=== PATIENT | female | born 1955 | race Caucasian/White ===

== ENCOUNTER → 2017-04-01 | Outpatient (CLI) | payer OTHER ==
[~2017-04-01] MED LIST: AMOX1TAB64 PO; AZIT500T77 PO; FLUT1DIS IH; HYDR12.53 PO; LEVO25TA4 PO; LISI-167 PO; METF500T4 PO; MONT4GRA2 PO; NAPR220C PO; OMEP-110 PO; PRED1TAB PO; PRED20TA PO; TIOT18CA INH
== END | disposition home or self-care (01) ==
LOC: CARD 13:45
PROVIDERS: ATTEND Family Medicine
DX: J44.9 Chronic obstructive pulmonary disease, unspecified (principal)
CPT/HCPCS: 94060; 94726; 94729

== ENCOUNTER 2020-01-20 13:01 | Outpatient (CLI) | payer OTHER, MEDICAID ==
[~2020-01-20 13:01] MED LIST changes: +ASPI-515 PO; +AZIT500T10 PO; -AZIT500T77 PO; +FLUT1DIS5 IH; +FURO-93 PO; +HYDR12.517 PO; -HYDR12.53 PO; +LEVO750T26 PO; +METF500T17 PO; -METF500T4 PO; +NAPR-816 PO; -NAPR220C PO; +NAPR220C62 PO; +PRED10TA PO; -PRED1TAB PO; +PRED1TAB19 PO; +PREG75CA PO; +SIMV40TA20 PO; +potassium PO
[2020-01-20] MEDS ORDERED: METF500T17 PO (13:41)
[2020-01-20] MEDS ORDERED: NAPR-685 PO (13:41)
[2020-01-20] MEDS ORDERED: POTA10TA31 PO (13:41)
[2020-01-20] MEDS ORDERED: ASCO100019 PO (13:41)
[2020-01-20] MEDS ORDERED: OMEP-110 PO (13:41)
[2020-01-20] MEDS ORDERED: ALBU18HF INH (13:41)
[2020-01-20] MEDS ORDERED: CHOL10003 PO (13:41)
[2020-01-20] MEDS ORDERED: FLUT1BLS10 INH (13:41)
[2020-01-20] MEDS ORDERED: MONT10TA11 PO (13:41)
[2020-01-20] MEDS ORDERED: ALBUTEROL SULFATE NEB (13:41)
[2020-01-20 14:23] LABS: CALCIUM 10.4 mg/dL (8.5-10.1); CHLORIDE 103 mmol/L (98-107)
[2020-01-20 14:28] LABS: ALANINE AMINOTRANSFERASE 19 U/L (12-78); ALBUMIN 3.4 g/dL (3.4-5.0); ALKALINE PHOSPHATASE 100 U/L (45-117); ANION GAP 6 mmol/L (5-15); BILIRUBIN,TOTAL 0.4 mg/dL (0.2-1.0); CREATININE 0.57 mg/dL (0.55-1.02); TOTAL PROTEIN 7.8 g/dL (6.4-8.2)
== END 2020-01-20 23:59 | disposition home or self-care (01) ==
LOC: STAR 13:01
PROVIDERS: ATTEND Internal Medicine
DX: Z01.818 Encounter for other preprocedural examination (principal); R13.10 Dysphagia, unspecified; R00.0 Tachycardia, unspecified
CPT/HCPCS: 36415; 80053; 93005; U0001-CS

== ENCOUNTER 2020-02-01 12:29 | Day surgery (SDC) | payer OTHER, MEDICAID ==
[~2020-02-01] VITALS: Ht 157.5 cm; Wt 80.5 kg
[~2020-02-01 12:29] MED LIST changes: +ALBU18HF INH; +ALBUTEROL SULFATE NEB; +ASCO100019 PO; +CHOL10003 PO; +FLUT1BLS10 INH; +MONT10TA11 PO; +NAPR-685 PO; +POTA10TA31 PO
[2020-02-01 13:07] VITALS: BP 136/104
[2020-02-01] MEDS: LACTATED RINGERS 1,000 ML IV SCH ×2 (13:22→13:35)
[2020-02-01] MEDS ORDERED: CHLORHEXIDINE 15 ML UDC MM ONE (13:30)
[2020-02-01] MEDS ORDERED: FENTANYL PF 100 MCG/2ML ONE (14:13)
[2020-02-01] MEDS ORDERED: MIDAZOLAM 1 MG/ML, 2ML ONE (14:14)
[2020-02-01] MEDS ORDERED: PROPOFOL 10 MG/ML, 20ML ONE (14:47)
[2020-02-01] MEDS ORDERED: ALBUTEROL/IPRATROPIUM 2.5MG/0.5MG, 3 ML ONE (15:12)
[2020-02-01] MEDS ORDERED: FENTANYL PF 100 MCG/2ML IV PRN (15:30)
[2020-02-01] MEDS ORDERED: PROMETHAZINE 25 MG/ML, 1ML IVPush PRN (15:30)
[2020-02-01] MEDS ORDERED: ALBUTEROL/IPRATROPIUM 2.5MG/0.5MG, 3 ML NPPB PRN (15:30)
== END 2020-02-01 16:40 | disposition home or self-care (01) ==
LOC: OUT 12:29
PROVIDERS: ATTEND Internal Medicine
DX: R13.10 Dysphagia, unspecified (principal); C15.9 Malignant neoplasm of esophagus, unspecified; K44.9 Diaphragmatic hernia without obstruction or gangrene; I10 Essential (primary) hypertension; E11.9 Type 2 diabetes mellitus without complications; E03.9 Hypothyroidism, unspecified; J44.9 Chronic obstructive pulmonary disease, unspecified; Z79.899 Other long term (current) drug therapy; Z99.81 Dependence on supplemental oxygen
CPT/HCPCS: 43239; 82962; 88305; 94640; J2250; J2704; J3010; J7120

== ENCOUNTER 2020-03-16 11:00 | Day surgery (SDC) | payer OTHER, MEDICAID ==
[~2020-03-16] VITALS: Ht 157.5 cm; Wt 75.0 kg
[2020-03-16 12:46] VITALS: BP 124/86
[2020-03-16] MEDS ORDERED: LACTATED RINGERS 1,000 ML IV SCH (13:11)
[2020-03-16] MEDS ORDERED: HYDR-3237 PO (13:18)
[2020-03-16] MEDS ORDERED: CHLORHEXIDINE 15 ML UDC MM ONE (13:30)
[2020-03-16 13:33] LABS: ALANINE AMINOTRANSFERASE 14 U/L (12-78); ALBUMIN 3.1 g/dL (3.4-5.0); ANION GAP 6 mmol/L (5-15); CALCIUM 10.2 mg/dL (8.5-10.1); CHLORIDE 104 mmol/L (98-107); CREATININE 0.54 mg/dL (0.55-1.02)
[2020-03-16 13:36] LABS: ALKALINE PHOSPHATASE 91 U/L (45-117); BILIRUBIN,TOTAL 0.5 mg/dL (0.2-1.0); TOTAL PROTEIN 7.3 g/dL (6.4-8.2)
[2020-03-16] MEDS ORDERED: ALBUTEROL SULFATE 200 PUFFS/8.5 GR INH ONE (15:07)
[2020-03-16] MEDS ORDERED: SUCCINYLCHOLINE 20 MG/ML, 10ML ONE (15:07)
[2020-03-16] MEDS ORDERED: PROPOFOL 10 MG/ML, 20ML ONE (15:07)
[2020-03-16] MEDS ORDERED: PHENYLEPHRINE 10 MG/ML ONE (15:07)
[2020-03-16] MEDS ORDERED: ONDANSETRON 2MG/ML, 2ML ONE (15:07)
[2020-03-16] MEDS ORDERED: DEXAMETHASONE 4 MG/ML, 1ML ONE (15:07)
[2020-03-16] MEDS ORDERED: VANCOMYCIN 500 MG ONE ×2 (15:12→15:16)
[2020-03-16] MEDS ORDERED: SODIUM CHLORIDE 0.9% 100 ML ONE (15:12)
[2020-03-16] MEDS ORDERED: morphine SULFATE 10 MG/ML, 1ML IVPush PRN (15:30)
[2020-03-16] MEDS ORDERED: FENTANYL PF 100 MCG/2ML IV PRN (15:30)
[2020-03-16] MEDS ORDERED: OXYcodone 5 MG/5 ML ORAL.SOL UDC ONE (16:00)
[2020-03-16] MEDS ORDERED: FENTANYL PF 100 MCG/2ML ONE (16:03)
[2020-03-16] MEDS ORDERED: OXYcodone 5 MG/5 ML ORAL.SOL UDC PO PRN (16:30)
== END 2020-03-16 17:15 | disposition home or self-care (01) ==
LOC: OUT 11:00
PROVIDERS: ATTEND Internal Medicine
DX: C15.9 Malignant neoplasm of esophagus, unspecified (principal); Z11.59 Encounter for screening for other viral diseases; E03.9 Hypothyroidism, unspecified; E11.9 Type 2 diabetes mellitus without complications; I10 Essential (primary) hypertension; J44.9 Chronic obstructive pulmonary disease, unspecified; F17.210 Nicotine dependence, cigarettes, uncomplicated; Z88.8 Allergy status to other drugs, medicaments and biological substances; Z90.49 Acquired absence of other specified parts of digestive tract; Z79.899 Other long term (current) drug therapy; Z98.890 Other specified postprocedural states; Z79.82 Long term (current) use of aspirin; Z72.89 Other problems related to lifestyle; Z79.84 Long term (current) use of oral hypoglycemic drugs; Z82.49 Family history of ischemic heart disease and other diseases of the circulatory system; Z83.3 Family history of diabetes mellitus
CPT/HCPCS: 36415; 43246; 80053; 87635; 93005; B4087; J0330; J1100; J2370; J2405; J2704; J3010; J3370; J7120

== ENCOUNTER 2020-04-24 11:19 | Inpatient (IN) | payer OTHER, MEDICAID ==
[~2020-04-24] VITALS: Ht 157.5 cm; Wt 76.0 kg
[~2020-04-24 11:19] MED LIST changes: +HYDR-3237 PO
[2020-04-24] MEDS ORDERED: SODIUM CHLORIDE 0.9% 1,000 ML IV ONE (11:27)
[2020-04-24] MEDS ORDERED: SODIUM CHLORIDE FLUSH 10ML SYR IVF ONE (11:30)
--- NOTE | 2020-04-24 11:30 | NUR ---
PT BIB [facility], STATES FEELING G/O WEAKNESS, N/V/D, COUGH AND HEART PALP X4 DAYS. PT NOTED TO BE IN AN AFIB WITH RVR RHYTHM. ERMD AT BEDSIDE. PT OTHERWISE A&OX4, PROTECTING OWN AIRWAY WELL. PT PLACED ON MONITORS AND CODE CART PLACED BY ROOM IF NEEDED. EKG DONE AT [facility] BY TECH.
[2020-04-24] MEDS ORDERED: DILTIAZEM 5 MG/ML, 5ML ONE (11:38)
--- NOTE | 2020-04-24 11:45 | NUR ---
PT GIVEN CARDIZEM PER ERMD ORDER. PT HR DECREASED TO LOW 100'S. TECH AT BEDSIDE FOR EKG. PT REMAINS ON MONITORS. CONT TO MONITOR.
[2020-04-24 11:47] LABS: BASOPHILS # (AUTO) 0.01 x10^3/uL (0-0.1); BASOPHILS % (AUTO) 0 % (0-1); EOSINOPHILS # (AUTO) 0.05 x10^3/uL (0-0.4); EOSINOPHILS % (AUTO) 2 % (1-7); LYMPHOCYTES # (AUTO) 0.41 x10^3/uL (1-3.4); LYMPHOCYTES % (AUTO) 14 % (22-44); MD NO; MEAN CORPUSCULAR HEMOGLOBIN 27.8 pg (27.0-34.8); MEAN CORPUSCULAR HGB CONC 32.8 g/dL (32.4-35.8); MEAN CORPUSCULAR VOLUME 84.7 fL (80-100); MEAN PLATELET VOLUME 7.7 fL (7.4-10.4); MONOCYTES # (AUTO) 0.13 x10^3/uL (0.2-0.8); MONOCYTES % (AUTO) 4 % (2-9); NEUTROPHILS % (AUTO) 80 % (42-75); PLATELET COUNT 249 x10^3/uL (130-400); RED BLOOD COUNT 4.23 x10^6/uL (3.82-5.3); RED CELL DISTRIBUTION WIDTH 16.6 % (9.6-15.2)
[2020-04-24 11:59] LABS: ALANINE AMINOTRANSFERASE 15 U/L (12-78); ALBUMIN 2.6 g/dL (3.4-5.0); ANION GAP 7 mmol/L (5-15); CALCIUM 8.7 mg/dL (8.5-10.1); CHLORIDE 105 mmol/L (98-107); CREATININE 0.45 mg/dL (0.55-1.02)
[2020-04-24] MEDS ORDERED: DILTIAZEM 5 MG/ML, 5ML IVPush ONE (12:00)
[2020-04-24 12:04] LABS: ALKALINE PHOSPHATASE 74 U/L (45-117); BILIRUBIN,TOTAL 0.5 mg/dL (0.2-1.0); TOTAL PROTEIN 6.4 g/dL (6.4-8.2); TROPONIN I < 0.015 ng/mL (0.000-0.045)
[2020-04-24] MEDS ORDERED: MAGNESIUM SULFATE PMX 2GM/50ML 50 ML IV ONE (12:30)
[2020-04-24] MEDS ORDERED: MAGNESIUM SULFATE PMX 2GM/50ML 50 ML ONE (12:37)
[2020-04-24] MEDS: DILTIAZEM 125 MG in SODIUM CHLORIDE 0.9% 100 ML IV SCH (12:51)
--- NOTE | 2020-04-24 13:02 | NUR ---
ADMITTING MD AT BEDSIDE. PT WILL BE COVID R/O, PT AWARE OF POC, WILL BE [facility] ADMIT. PT REMAINS ON MONITORS, VSS. CONT TO MONITOR.
[2020-04-24] MEDS ORDERED: GUAIFENESIN/DM 200-20MG, 10ML UDC PO PRN (14:00)
[2020-04-24] MEDS ORDERED: ACETAMINOPHEN 325 MG TABLET PO PRN (14:00)
[2020-04-24] MEDS ORDERED: GUAIFENESIN/COD200MG-20MG/10ML LIQUID PO PRN (14:00)
[2020-04-24] MEDS ORDERED: DOCUSATE 100 MG CAPSULE PO PRN (14:00)
[2020-04-24] MEDS ORDERED: ONDANSETRON 2MG/ML, 2ML IVPush PRN (14:00)
[2020-04-24] MEDS ORDERED: ALBUTEROL HFA 90 MCG/SPRAY INH SCH (14:00)
[2020-04-24] MEDS ORDERED: LABETALOL 5MG/ML, 20ML IVPush PRN (14:00)
[2020-04-24] MEDS ORDERED: hydrALAzine 20 MG/ML, 1ML IVPush PRN (14:00)
[2020-04-24] MEDS ORDERED: FENTANYL REMOVE PATCH NOTE XX SCH (14:00)
--- NOTE | 2020-04-24 14:03 | NUR ---
PT RESTING IN BED, NO DISTRESS. REMAINS ON MONITORS, VSS. PT REMAINS AWARE OF POC. NO DISTRESS, CONT TO MONITOR.
--- NOTE | 2020-04-24 14:42 | NUR ---
REPORT GIVEN TO JESSICA WOODWARD. [facility] ADMITTING AT BEDSIDE FOR ASSESSMENT.
--- NOTE | 2020-04-24 15:45 | NUR ---
PT OK TO TRANSFER TO FLOOR, ROOM READY. PT REMAINS AWARE OF POC. ON MONITORS, VSS.
--- NOTE | 2020-04-24 16:10 | NUR ---
PT TRANSFERED TO FLOOR PER ORDERS. PT HAS ALL OWN BELONGINGS UPON TRANSFER.
[2020-04-24 16:13] VITALS: BP 92/66
[2020-04-24] MEDS ORDERED: ALBUTEROL SULFATE 2.5 MG/3 ML NPPB PRN (16:30)
[2020-04-24] MEDS ORDERED: ALBUTEROL HFA 90 MCG/SPRAY INH PRN (16:30)
[2020-04-24] MEDS: HEPARIN 5,000 UNITS/ML, 1ML SQ SCH (16:30)
[2020-04-24] MEDS: LACTATED RINGERS 1,000 ML IV SCH ×2 (16:32→18:16)
[2020-04-24 19:17] VITALS: BP 99/65
[2020-04-24] MEDS ORDERED: FENT1PAT5 TD (19:30)
[2020-04-24] MEDS ORDERED: FENTANYL 12 MCG PATCH TD SCH (20:00)
[2020-04-24] MEDS: NICOTINE 21 MG/24 HR PATCH.TD24 TD SCH (20:09)
[2020-04-24] MEDS: metFORMIN 500 MG TABLET PO SCH (20:09)
[2020-04-24] MEDS: HYDROcodone/APAP 5/325 TABLET PO PRN (20:09)
[2020-04-24] MEDS: SIMVASTATIN 40 MG TABLET PO SCH (20:10)
[2020-04-24] MEDS: OMEPRAZOLE 20 MG CAPSULE.DR PO SCH (20:13)
[2020-04-25] MEDS: DILTIAZEM 125 MG in SODIUM CHLORIDE 0.9% 100 ML IV SCH (00:51)
[2020-04-25 00:53] VITALS: BP 103/70
[2020-04-25] MEDS: HEPARIN 5,000 UNITS/ML, 1ML SQ SCH ×3 (00:53→17:05)
[2020-04-25] MEDS: LACTATED RINGERS 1,000 ML IV SCH (02:55)
[2020-04-25] MEDS: HYDROcodone/APAP 5/325 TABLET PO PRN ×3 (03:07→18:30)
[2020-04-25 06:05] LABS: ANION GAP 6 mmol/L (5-15); CALCIUM 8.4 mg/dL (8.5-10.1); CHLORIDE 106 mmol/L (98-107)
[2020-04-25 06:18] LABS: BASOPHILS # (AUTO) 0.01 x10^3/uL (0-0.1); BASOPHILS % (AUTO) 1 % (0-1); EOSINOPHILS # (AUTO) 0.05 x10^3/uL (0-0.4); EOSINOPHILS % (AUTO) 2 % (1-7); LYMPHOCYTES # (AUTO) 0.36 x10^3/uL (1-3.4); LYMPHOCYTES % (AUTO) 16 % (22-44); MD NO; MEAN CORPUSCULAR HEMOGLOBIN 27.8 pg (27.0-34.8); MEAN CORPUSCULAR HGB CONC 32.9 g/dL (32.4-35.8); MEAN CORPUSCULAR VOLUME 84.6 fL (80-100); MEAN PLATELET VOLUME 7.9 fL (7.4-10.4); MONOCYTES # (AUTO) 0.19 x10^3/uL (0.2-0.8); MONOCYTES % (AUTO) 9 % (2-9); NEUTROPHILS # (AUTO) 1.61 x10^3/uL (1.8-6.8); NEUTROPHILS % (AUTO) 72 % (42-75); PLATELET COUNT 176 x10^3/uL (130-400); RED BLOOD COUNT 3.35 x10^6/uL (3.82-5.3); RED CELL DISTRIBUTION WIDTH 16.9 % (9.6-15.2)
[2020-04-25 07:16] VITALS: BP 101/66
[2020-04-25] MEDS ORDERED: NICOTINE 21 MG/24 HR PATCH.TD24 TD SCH (09:00)
[2020-04-25] MEDS ORDERED: LISINOPRIL 10 MG TABLET PO SCH (09:00)
[2020-04-25] MEDS: OMEPRAZOLE 20 MG CAPSULE.DR PO SCH ×2 (09:00→20:47)
[2020-04-25] MEDS: LEVOTHYROXINE 25 MCG TABLET PO SCH (09:03)
[2020-04-25] MEDS: metFORMIN 500 MG TABLET PO SCH ×2 (09:03→20:47)
[2020-04-25] MEDS: MONTELUKAST 10 MG TABLET PO SCH (09:04)
[2020-04-25] MEDS: CHOLECALCIFEROL 1,000 UNIT TABLET PO SCH (09:04)
[2020-04-25] MEDS: NICOTINE 21 MG/24 HR PATCH.TD24 TD SCH (09:05)
[2020-04-25] MEDS ORDERED: DILTIAZEM 60 MG TABLET ONE ×3 (11:17→20:40)
[2020-04-25 11:23] VITALS: BP 95/63
[2020-04-25] MEDS: FLUTICASONE/VILANTEROL 200-25MCG/INH INH SCH (11:23)
[2020-04-25] MEDS: TIOTROPIUM BROMIDE 18 MCG/INH INH SCH (11:23)
[2020-04-25] MEDS: DILTIAZEM 30 MG TABLET PO SCH ×3 (11:24→20:47)
[2020-04-25 12:00] VITALS: BP 106/66
[2020-04-25 17:11] VITALS: BP 95/63
[2020-04-25 19:20] VITALS: BP 100/66
[2020-04-25] MEDS: SIMVASTATIN 40 MG TABLET PO SCH (20:47)
[2020-04-26] MEDS: HEPARIN 5,000 UNITS/ML, 1ML SQ SCH ×2 (00:02→08:24)
[2020-04-26] MEDS: HYDROcodone/APAP 5/325 TABLET PO PRN ×3 (00:02→12:11)
[2020-04-26 00:04] VITALS: BP 105/70
[2020-04-26] MEDS: DILTIAZEM 30 MG TABLET PO SCH ×2 (06:38→10:14)
[2020-04-26 06:39] VITALS: BP 100/64
[2020-04-26] MEDS: NICOTINE 21 MG/24 HR PATCH.TD24 TD SCH (08:24)
[2020-04-26] MEDS: metFORMIN 500 MG TABLET PO SCH (08:25)
[2020-04-26] MEDS: OMEPRAZOLE 20 MG CAPSULE.DR PO SCH (08:25)
[2020-04-26] MEDS: MONTELUKAST 10 MG TABLET PO SCH (08:25)
[2020-04-26] MEDS: CHOLECALCIFEROL 1,000 UNIT TABLET PO SCH (08:25)
[2020-04-26] MEDS: LEVOTHYROXINE 25 MCG TABLET PO SCH (08:25)
[2020-04-26] MEDS: TIOTROPIUM BROMIDE 18 MCG/INH INH SCH (08:25)
[2020-04-26] MEDS: FLUTICASONE/VILANTEROL 200-25MCG/INH INH SCH (08:25)
[2020-04-26 12:25] VITALS: BP 106/65
[2020-04-26] MEDS ORDERED: NAPR-685 PO (12:49)
[2020-04-26] MEDS ORDERED: DILT120C11 PO (12:49)
[2020-04-27] MEDS ORDERED: FENTANYL REMOVE PATCH NOTE XX SCH (20:00)
== END 2020-04-26 14:45 | disposition home or self-care (01) | DRG 309 ==
LOC: ED 11:51 → EDIP 12:27 → 4EST 15:57
PROVIDERS: ADMIT Student in an Organized Health Care Education/Training Program; ATTEND Student in an Organized Health Care Education/Training Program
DX: I48.91 Unspecified atrial fibrillation (principal); J44.1 Chronic obstructive pulmonary disease with (acute) exacerbation; C34.90 Malignant neoplasm of unspecified part of unspecified bronchus or lung; I95.9 Hypotension, unspecified; D64.9 Anemia, unspecified; D72.819 Decreased white blood cell count, unspecified; E03.9 Hypothyroidism, unspecified; E78.5 Hyperlipidemia, unspecified; F17.210 Nicotine dependence, cigarettes, uncomplicated; Z20.828 Contact with and (suspected) exposure to other viral communicable diseases; K21.9 Gastro-esophageal reflux disease without esophagitis; M54.9 Dorsalgia, unspecified; G89.3 Neoplasm related pain (acute) (chronic); E83.42 Hypomagnesemia; R13.10 Dysphagia, unspecified; I11.0 Hypertensive heart disease with heart failure; I50.9 Heart failure, unspecified; Z92.3 Personal history of irradiation; Z85.01 Personal history of malignant neoplasm of esophagus; Z79.4 Long term (current) use of insulin; Z85.118 Personal history of other malignant neoplasm of bronchus and lung; Z92.21 Personal history of antineoplastic chemotherapy
CPT/HCPCS: 36415; 71045; 80048; 80053; 82962; 83735; 83880; 84443; 84484; 85025; 87040; 87635; 93005; 96360; 96361; 99291; G0378; J1644; J3475; J7030; J7120

== ENCOUNTER 2020-05-20 00:01 | Emergency (ER) | payer OTHER, MEDICAID ==
[~2020-05-20] VITALS: Ht 157.5 cm; Wt 75.0 kg
[~2020-05-20 00:01] MED LIST changes: +DILT120C11 PO; +FENT1PAT5 TD; +FUROSEMIDE; +HOME OXYGEN NS; +ZOFRAN; +[UNRECOGNIZED DRUG - REMARK]
[2020-05-20 00:04] VITALS: BP 122/62
--- NOTE | 2020-05-20 00:23 | NUR ---
65 YEAR OLD FEMALE TO ED FOR DYSPHAGIA AND UNABLE TO TOLERATE PO. SHE STATES SHE HAS PMHX OF CANCER WITH A MASS THAT COMPRESSES HER ESOPHAGUS. SHE HAD CHEMO THIS AM AND HAD TO LAY FLAT DURING THE PROCEDURE. SINCE THEN SHE HAS BEEN HAVING INCREASED SPUTUM AND NAUSEA. SGHE ALSO HAS HOARSNESS BUT THIS IS NOT NEW.
[2020-05-20] MEDS ORDERED: MAALOX/HYOSCYAMINE/LIDOCAINE 45 ML BTL PO ONE (00:30)
[2020-05-20] MEDS ORDERED: MAALOX/HYOSCYAMINE/LIDOCAINE 45 ML BTL ONE (00:38)
[2020-05-20 01:17] LABS: MEAN CORPUSCULAR HEMOGLOBIN 28.4 pg (27.0-34.8); MEAN CORPUSCULAR HGB CONC 31.9 g/dL (32.4-35.8); MEAN PLATELET VOLUME 7.5 fL (7.4-10.4); PLATELET COUNT 251 x10^3/uL (130-400); RED BLOOD COUNT 3.21 x10^6/uL (3.82-5.3); RED CELL DISTRIBUTION WIDTH 23.7 % (9.6-15.2)
[2020-05-20 01:39] LABS: ALBUMIN 2.4 g/dL (3.4-5.0); ANION GAP 4 mmol/L (5-15); CALCIUM 8.3 mg/dL (8.5-10.1); CHLORIDE 109 mmol/L (98-107); CREATININE 0.45 mg/dL (0.55-1.02)
[2020-05-20 01:42] LABS: BASOPHILS % (AUTO) 0 % (0-1); EOSINOPHILS % (AUTO) 0 % (1-7); LYMPHOCYTES # (AUTO) 0.18 x10^3/uL (1-3.4); LYMPHOCYTES % (AUTO) 3 % (22-44); MD SCAN; MONOCYTES % (AUTO) 4 % (2-9); NEUTROPHILS # (AUTO) 6.84 x10^3/uL (1.8-6.8); NEUTROPHILS % (AUTO) 93 % (42-75)
[2020-05-20 01:58] LABS: TROPONIN I < 0.015 ng/mL (0.000-0.045)
== END 2020-05-20 02:38 | disposition home or self-care (01) ==
LOC: ED 00:28
DX: C15.9 Malignant neoplasm of esophagus, unspecified (principal); R11.10 Vomiting, unspecified; R07.89 Other chest pain; I10 Essential (primary) hypertension; E11.9 Type 2 diabetes mellitus without complications; J44.9 Chronic obstructive pulmonary disease, unspecified; I48.91 Unspecified atrial fibrillation; F17.210 Nicotine dependence, cigarettes, uncomplicated
CPT/HCPCS: 36415; 71046; 80048; 82040; 84484; 85025; 93005; 99283; 99406

== ENCOUNTER 2021-03-07 11:45 | Inpatient (IN) | payer OTHER, MEDICAID ==
[~2021-03-07] VITALS: Ht 157.5 cm; Wt 50.9 kg
[~2021-03-07 11:45] MED LIST changes: +ASCO500C2 PO; -ASPI-515 PO; +ASPI-963 PO; +AZIT250T89 PO; +BISM262O20 PO; +CALC-192 PO; +CHOL10002 PO; +DILT30TA27 PO; +FENT-58 TD; +FLUC100T4 PO; +HYDR-3241 PO; +LORA-445 PO; +MAGN400T36 PO; -MONT10TA11 PO; +MONT10TA17 PO; +OMEP40CA8 PO; +SUCR1ORA5 PO
--- NOTE | 2021-03-07 11:55 | NUR ---
THIS IS A 65YO F BIB EMS FROM HOME W/ C/O BILAT LWR ABD PAIN, N/V X5 DAYS. PT REPORTS SEEING ONCOLOGIST AND GI YESTERDAY. PT REPORTS HOME PAIN MEDS HAVE NOT BEEN PROVIDING RELIEF. HX OF LUNG CANCER W/ ESOPHAGEAL STENTS, CHF, COPD, PEG TUBE. WEARS 3L NC BASELINE. 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 PER EMS PT RECEIVED 3MG MORPHINE, 4MG ZOFRAN AND 6.25MG PHENERGAN (IM) BACK FILLER OPERATOR. PT RESTING ON GURNEY W/ CALL LIGHT IN REACH, SIDE RAILS UPX2. CONNECTED TO ALL MONITORING, VSS, NADN. AWAITING ED EVAL.
[2021-03-07] MEDS ORDERED: SODIUM CHLORIDE FLUSH 10ML SYR IVF ONE (12:30)
[2021-03-07 12:43] LABS: BASOPHILS % (AUTO) 1 % (0-1); EOSINOPHILS % (AUTO) 1 % (1-7); LYMPHOCYTES % (AUTO) 3 % (22-44); MEAN CORPUSCULAR HGB CONC 32.8 g/dL (32.4-35.8); MEAN PLATELET VOLUME 6.8 fL (7.4-10.4); MONOCYTES % (AUTO) 7 % (2-9); NEUTROPHILS % (AUTO) 88 % (42-75); PLATELET COUNT 367 x10^3/uL (130-400); RED BLOOD COUNT 4.25 x10^6/uL (3.82-5.3)
--- NOTE | 2021-03-07 12:46 | NUR ---
PT AMBULATED TO THE BR W/ A STEADY GAIT.
[2021-03-07 12:56] LABS: ALANINE AMINOTRANSFERASE 15 U/L (12-78); ALBUMIN 2.6 g/dL (3.4-5.0); CALCIUM 9.5 mg/dL (8.5-10.1)
--- NOTE | 2021-03-07 12:58 | NUR ---
PT RETURNED TO ROOM W/O INCIDENT. URINE COLLECTED AND SENT TO LAB. PT PROVIDED W/ WARM BLANKET PER PT REQUEST.
[2021-03-07 12:59] LABS: ALKALINE PHOSPHATASE 87 U/L (45-117); BILIRUBIN,TOTAL 0.4 mg/dL (0.2-1.0); CREATININE 0.54 mg/dL (0.55-1.02); TOTAL PROTEIN 7.3 g/dL (6.4-8.2)
[2021-03-07 13:06] LABS: ANION GAP 3 mmol/L (5-15); CHLORIDE 97 mmol/L (98-107)
[2021-03-07 13:09] LABS: MICROSCOPIC INDICATED
--- NOTE | 2021-03-07 13:22 | NUR ---
REPORT TO [employer] WOODWARD. PT RESTING ON GURNEY W/ CALL LIGHT IN REACH AND SIDE RAILS UPX2. RESP EVEN AND UNLABORED, NADN. AWAITING CT.
[2021-03-07] MEDS ORDERED: DIPHENHYDRAMINE 50 MG/ML, 1ML IVPush ONE (13:30)
--- NOTE | 2021-03-07 13:30 | NUR ---
Pt to imaging.
[2021-03-07] MEDS ORDERED: OMNIPAQUE 350 MG/ML, 100ML BOTTLE ONE (13:49)
[2021-03-07] MEDS ORDERED: HYDROmorphone 1 MG/ML, 1ML INJ ONE (14:37)
--- NOTE | 2021-03-07 14:43 | NUR ---
Pt denies need for Benadryl.
[2021-03-07] MEDS ORDERED: BUPIVACAINE/PF 0.25% ONE (14:57)
[2021-03-07] MEDS ORDERED: EPINEPHRINE 1 MG/ML, 1ML ONE (14:57)
[2021-03-07] MEDS ORDERED: HYDROmorphone 1 MG/ML, 1ML INJ IV ONE (15:00)
[2021-03-07] MEDS ORDERED: SODIUM CHLORIDE 0.9% 1,000ML IVBOLUS ONE (15:00)
--- NOTE | 2021-03-07 15:02 | NUR ---
Admitting MD at bedside for eval. Norma Arora, rey, candido to update, .
[2021-03-07] MEDS ORDERED: CHLORHEXIDINE 15 ML UDC ONE (15:07)
[2021-03-07] MEDS ORDERED: CHLORHEXIDINE 15 ML UDC PO ONE (15:30)
[2021-03-07] MEDS: HEPARIN 5,000 UNITS/ML, 1ML SQ SCH (15:30)
[2021-03-07] MEDS: LACTATED RINGERS 1,000 ML IV SCH (15:30)
[2021-03-07] MEDS ORDERED: ACETAMINOPHEN 325 MG TABLET PO PRN ×2 (15:30→17:00)
[2021-03-07] MEDS ORDERED: ALBUTEROL HFA 90 MCG/SPRAY INH PRN (15:30)
[2021-03-07] MEDS ORDERED: NICOTINE 21 MG/24 HR PATCH.TD24 TD ONE (15:30)
[2021-03-07 16:06] LABS: INTERNATIONAL NORMALIZED RATIO 1.05 (0.93-1.1); PROTHROMBIN TIME 11.2 Seconds (9.6-11.5)
[2021-03-07] MEDS ORDERED: FENTANYL PF 100 MCG/2ML ONE ×2 (16:13→18:00)
[2021-03-07] MEDS ORDERED: CLINDAMYCIN 150 MG/ML, 6ML ONE (16:19)
[2021-03-07] MEDS ORDERED: ONDANSETRON 2MG/ML, 2ML ONE (16:51)
[2021-03-07] MEDS ORDERED: ROCURONIUM 10MG/ML,5ML ONE (16:51)
[2021-03-07] MEDS ORDERED: CEFAZOLIN 1,000 MG ONE (16:51)
[2021-03-07] MEDS ORDERED: PROPOFOL 10 MG/ML, 20ML ONE (16:51)
[2021-03-07] MEDS ORDERED: DEXAMETHASONE 4 MG/ML, 1ML ONE (16:51)
[2021-03-07] MEDS ORDERED: NEOSTIGMINE 1 MG/ML, 10ML ONE (16:51)
[2021-03-07] MEDS ORDERED: SUCCINYLCHOLINE 20 MG/ML, 10ML ONE (16:51)
[2021-03-07] MEDS ORDERED: SUGAMMADEX 200 MG/2 ML IVPush ONE (16:51)
[2021-03-07] MEDS ORDERED: GLYCOPYRROLATE 0.2MG/1ML, 5ML ONE (16:51)
[2021-03-07] MEDS ORDERED: KETOROLAC 30 MG/1 ML IV PRN (17:00)
[2021-03-07] MEDS ORDERED: hydrALAzine 20 MG/ML, 1ML IV PRN (17:00)
[2021-03-07] MEDS ORDERED: DIAZEPAM 5 MG/ML, 2ML IVPush PRN (17:00)
[2021-03-07] MEDS ORDERED: ALBUTEROL SULFATE 2.5 MG/3 ML NPPB PRN (17:00)
[2021-03-07] MEDS ORDERED: PROMETHAZINE 25 MG/ML, 1ML IV PRN (17:00)
[2021-03-07] MEDS ORDERED: LABETALOL 5MG/ML, 20ML IV PRN (17:00)
[2021-03-07] MEDS ORDERED: HYDROmorphone 2 MG/ML, 1ML IVPush PRN (17:00)
[2021-03-07] MEDS ORDERED: MEPERIDINE/PF 25MG/0.5ML IVPush PRN (17:00)
[2021-03-07] MEDS ORDERED: ACETAMINOPHEN 650 MG/20.3 ML UDC ONE (18:01)
[2021-03-07] MEDS ORDERED: OXYcodone 5 MG/5 ML ORAL.SOL UDC ONE ×2 (18:01→18:58)
[2021-03-07] MEDS: FENTANYL PF 100 MCG/2ML IV PRN ×3 (18:04→18:42)
[2021-03-07] MEDS: OXYcodone 5 MG/5 ML ORAL.SOL UDC PO PRN ×2 (18:15→19:00)
[2021-03-07] MEDS ORDERED: MEPERIDINE/PF 25MG/ML,1ML ONE (18:59)
[2021-03-07] MEDS ORDERED: MORPHINE SULFATE 4 MG/ML, 1ML IVPush PRN ×2 (20:30→23:30)
[2021-03-07] MEDS: INSULIN LISPRO 100 UNITS/ML, PEN SQ-INSULIN SCH ×2 (21:00→23:32)
[2021-03-07] MEDS ORDERED: NICOTINE 21 MG/24 HR PATCH.TD24 ONE (21:02)
[2021-03-07] MEDS: FENTANYL 25 MCG PATCH TD SCH ×2 (21:07→23:25)
[2021-03-07] MEDS: KETOROLAC 30 MG/1 ML IVPush PRN (23:22)
[2021-03-08 00:39] VITALS: BP 87/60
[2021-03-08 01:19] VITALS: BP 92/67
[2021-03-08] MEDS: ONDANSETRON 2MG/ML, 2ML IVPush PRN ×2 (01:51→12:03)
[2021-03-08] MEDS ORDERED: HYDR1TAB53 PO (02:02)
[2021-03-08] MEDS ORDERED: LEVO25TA4 PO (02:02)
[2021-03-08] MEDS ORDERED: LORazepam 0.5MG TABLET PO PRN (02:30)
[2021-03-08] MEDS ORDERED: ALBUTEROL SULFATE 2.5 MG/3 ML ONE (03:12)
[2021-03-08] MEDS: ALBUTEROL/IPRATROPIUM 2.5MG/0.5MG, 3 ML NPPB SCH ×3 (03:15→20:35)
[2021-03-08 04:24] VITALS: BP 88/56
[2021-03-08] MEDS: OMEPRAZOLE 20 MG CAPSULE.DR PO SCH ×2 (05:10→15:55)
[2021-03-08] MEDS: HEPARIN 5,000 UNITS/ML, 1ML SQ SCH ×3 (05:10→20:58)
[2021-03-08] MEDS: KETOROLAC 30 MG/1 ML IVPush PRN ×2 (05:10→16:56)
[2021-03-08 05:22] LABS: MEAN CORPUSCULAR HEMOGLOBIN 30.3 pg (27.0-34.8); MEAN CORPUSCULAR HGB CONC 32.5 g/dL (32.4-35.8); MEAN PLATELET VOLUME 7.1 fL (7.4-10.4); PLATELET COUNT 378 x10^3/uL (130-400); RED BLOOD COUNT 3.25 x10^6/uL (3.82-5.3); RED CELL DISTRIBUTION WIDTH 15.8 % (9.6-15.2)
[2021-03-08 05:28] LABS: CALCIUM 8.5 mg/dL (8.5-10.1)
[2021-03-08 05:29] LABS: CREATININE 0.75 mg/dL (0.55-1.02)
[2021-03-08 05:43] LABS: ANION GAP 2 mmol/L (5-15); CHLORIDE 101 mmol/L (98-107)
[2021-03-08] MEDS ORDERED: LACTATED RINGERS 1,000 ML IVBOLUS ONE ×2 (06:00→10:00)
[2021-03-08 06:05] LABS: BAND#(MANUAL) 2.94 x10^3/uL; BANDS%(MANUAL) 16 % (0-7); LYMPH#(MANUAL) 0.55 x10^3/uL (1-3.4); LYMPHS% (MANUAL) 3 % (22-44); MONOS#(MANUAL) 1.84 x10^3/uL (0.3-2.7); MONOS% (MANUAL) 10 % (2-9); SEG#(MANUAL) 13.06 x10^3/uL (1.8-6.8); SEGS% (MANUAL) 71 % (42-75)
[2021-03-08 06:06] LABS: <RBC MORPHOLOGY> NORMAL
[2021-03-08 06:07] LABS: <PLATELET ESTIMATE> ADEQUATE; <PLT MORPHOLOGY> NORMAL PLT MORPH
[2021-03-08 06:32] VITALS: BP 83/58
[2021-03-08] MEDS: INSULIN LISPRO 100 UNITS/ML, PEN SQ-INSULIN SCH ×4 (07:00→21:10)
[2021-03-08] MEDS: BUDESONIDE 0.5 MG/2 ML INHA NPPB SCH ×2 (07:58→20:35)
[2021-03-08] MEDS ORDERED: VANCOMYCIN PER PHARMACY MC PRN (08:30)
[2021-03-08] MEDS ORDERED: MORPHINE SULFATE 4 MG/ML, 1ML IVPush PRN (08:30)
[2021-03-08] MEDS ORDERED: LEVOFLOXACIN/PMX 750MG/150ML 150 ML IV SCH (09:00)
[2021-03-08] MEDS ORDERED: PHARMACOKINETIC MONITORING MC PRN (09:00)
[2021-03-08] MEDS ORDERED: PHARMACOKINETIC CONSULTATION MC ONE (09:00)
[2021-03-08] MEDS: LACTATED RINGERS 1,000 ML IV SCH (09:13)
[2021-03-08] MEDS: LACTOBACILLUS CHEW TABLET PO SCH ×3 (09:23→20:58)
[2021-03-08] MEDS ORDERED: VANCOMYCIN 1,300 MG in SODIUM CHLORIDE 0.9% 250 ML IV ONE (09:30)
[2021-03-08 10:06] VITALS: BP 89/59
[2021-03-08] MEDS: MEROPENEM 1 GM in SODIUM CHLORIDE 0.9% 100 ML IV SCH ×2 (11:59→20:58)
[2021-03-08] MEDS ORDERED: LORazepam 0.5MG TABLET ONE (15:54)
[2021-03-08] MEDS: LORazepam 0.5MG TABLET PO PRN (16:00)
[2021-03-08] MEDS: VANCOMYCIN 1,100 MG in SODIUM CHLORIDE 0.9% 250 ML IV SCH (22:46)
[2021-03-09] MEDS: HYDROcodone/APAP 10/325 MG TABLET PO PRN ×2 (00:53→05:47)
[2021-03-09] MEDS: HEPARIN 5,000 UNITS/ML, 1ML SQ SCH (04:00)
[2021-03-09 04:20] LABS: BASOPHILS % (AUTO) 0 % (0-1); EOSINOPHILS % (AUTO) 1 % (1-7); LYMPHOCYTES % (AUTO) 5 % (22-44); MEAN CORPUSCULAR HEMOGLOBIN 30.5 pg (27.0-34.8); MEAN CORPUSCULAR HGB CONC 33.2 g/dL (32.4-35.8); MEAN PLATELET VOLUME 6.7 fL (7.4-10.4); MONOCYTES % (AUTO) 9 % (2-9); NEUTROPHILS % (AUTO) 86 % (42-75); PLATELET COUNT 202 x10^3/uL (130-400); RED BLOOD COUNT 2.15 x10^6/uL (3.82-5.3)
[2021-03-09] MEDS: MEROPENEM 1 GM in SODIUM CHLORIDE 0.9% 100 ML IV SCH ×3 (04:29→20:20)
[2021-03-09 04:30] LABS: CALCIUM 8.1 mg/dL (8.5-10.1); CHLORIDE 104 mmol/L (98-107); CREATININE 0.38 mg/dL (0.55-1.02)
[2021-03-09 04:31] LABS: ANION GAP < 1 mmol/L (5-15)
[2021-03-09] MEDS: OMEPRAZOLE 20 MG CAPSULE.DR PO SCH ×2 (05:46→05:55)
[2021-03-09] MEDS: LORazepam 0.5MG TABLET PO PRN (05:47)
[2021-03-09] MEDS: INSULIN LISPRO 100 UNITS/ML, PEN SQ-INSULIN SCH ×4 (06:38→20:25)
[2021-03-09] MEDS: BUDESONIDE 0.5 MG/2 ML INHA NPPB SCH ×2 (07:45→19:20)
[2021-03-09] MEDS: ALBUTEROL/IPRATROPIUM 2.5MG/0.5MG, 3 ML NPPB SCH ×5 (07:45→19:20)
[2021-03-09 07:54] VITALS: BP 86/54
[2021-03-09] MEDS: MONTELUKAST 10 MG TABLET PO SCH (08:08)
[2021-03-09] MEDS: LACTOBACILLUS CHEW TABLET PO SCH ×3 (08:08→20:20)
[2021-03-09 08:09] VITALS: BP 94/54
[2021-03-09] MEDS ORDERED: LABETALOL 5MG/ML, 20ML IV PRN (09:00)
[2021-03-09] MEDS ORDERED: METOCLOPRAMIDE 5 MG/ML, 2ML IVPush PRN (09:00)
[2021-03-09] MEDS ORDERED: LORazepam 2 MG/ML, 1ML IVPush PRN (09:00)
[2021-03-09] MEDS ORDERED: MEPERIDINE/PF 25MG/0.5ML IVPush PRN (09:00)
[2021-03-09] MEDS ORDERED: hydrALAzine 20 MG/ML, 1ML IV PRN (09:00)
[2021-03-09] MEDS ORDERED: MIDAZOLAM 1 MG/ML, 2ML IV PRN (09:00)
[2021-03-09] MEDS ORDERED: HALOPERIDOL 5 MG/ML IV PRN (09:00)
[2021-03-09] MEDS ORDERED: DIAZEPAM 5 MG/ML, 2ML IVPush PRN (09:00)
[2021-03-09] MEDS ORDERED: OXYcodone 5 MG/5 ML ORAL.SOL UDC PO PRN (09:00)
[2021-03-09] MEDS ORDERED: HYDROcodone/APAP 7.5-325MG/15ML UDC PO PRN (09:00)
[2021-03-09] MEDS ORDERED: EPHEDRINE 50 MG/ML, 1ML IM PRN (09:00)
[2021-03-09] MEDS ORDERED: METHOCARBAMOL 1,000 MG in DEXTROSE 5% 100 ML IV PRN (09:00)
[2021-03-09] MEDS ORDERED: ALBUTEROL/IPRATROPIUM 2.5MG/0.5MG, 3 ML NPPB PRN (09:00)
[2021-03-09] MEDS ORDERED: EPHEDRINE 50 MG/ML, 1ML IVPush PRN (09:00)
[2021-03-09] MEDS ORDERED: HYDROmorphone 1 MG/ML, 1ML INJ IVPush PRN (09:00)
[2021-03-09] MEDS ORDERED: ONDANSETRON 2MG/ML, 2ML IVPush PRN (09:00)
[2021-03-09] MEDS ORDERED: DIPHENHYDRAMINE 50 MG/ML, 1ML IVPush PRN (09:00)
[2021-03-09 09:09] VITALS: BP 94/55
[2021-03-09] MEDS: FLUTICASONE/VILANTEROL 200-25MCG/INH INH SCH (09:17)
[2021-03-09] MEDS: TIOTROPIUM BROMIDE 18 MCG/INH INH SCH (09:17)
[2021-03-09] MEDS: PANTOPRAZOLE 40 MG IV IVPush SCH ×2 (09:25→20:20)
[2021-03-09] MEDS ORDERED: FUROSEMIDE 40 MG/4 ML IV ONE (09:30)
[2021-03-09] MEDS ORDERED: LIDOCAINE-MPF 1%, 5ML ONE (10:03)
[2021-03-09 10:07] VITALS: BP 103/65
[2021-03-09] MEDS: VANCOMYCIN 1,100 MG in SODIUM CHLORIDE 0.9% 250 ML IV SCH ×2 (10:59→21:54)
[2021-03-09 11:06] VITALS: BP 96/63
[2021-03-09] MEDS ORDERED: MIDAZOLAM 1 MG/ML, 2ML ONE (12:13)
[2021-03-09] MEDS ORDERED: FENTANYL PF 100 MCG/2ML ONE ×2 (12:13→13:31)
[2021-03-09] MEDS ORDERED: METOCLOPRAMIDE 5 MG/ML, 2ML ONE (12:22)
[2021-03-09] MEDS ORDERED: BUPIVACAINE/PF 0.5% ONE (12:56)
[2021-03-09] MEDS: FENTANYL PF 100 MCG/2ML IV PRN ×4 (13:35→14:00)
[2021-03-09] MEDS ORDERED: DEXTROSE 4 GM TAB.CHEW PO PRN (16:00)
[2021-03-09] MEDS ORDERED: DEXTROSE 50%, 50ML SYRINGE IVPush PRN (16:00)
[2021-03-09] MEDS ORDERED: GLUCAGON 1 MG IM PRN (16:00)
[2021-03-09] MEDS: morphine SULFATE 10 MG/ML, 1ML IV PRN (19:51)
[2021-03-09] MEDS: SODIUM CHLORIDE FLUSH 10ML SYR IVF SCH (20:20)
[2021-03-09] MEDS: LORazepam 2 MG/ML, 1ML IVPush PRN (20:45)
[2021-03-10] MEDS: MEROPENEM 1 GM in SODIUM CHLORIDE 0.9% 100 ML IV SCH ×3 (06:07→20:35)
[2021-03-10] MEDS: morphine SULFATE 10 MG/ML, 1ML IV PRN ×4 (06:11→21:08)
[2021-03-10] MEDS: INSULIN LISPRO 100 UNITS/ML, PEN SQ-INSULIN SCH ×4 (06:44→19:59)
[2021-03-10] MEDS: BUDESONIDE 0.5 MG/2 ML INHA NPPB SCH (06:49)
[2021-03-10] MEDS: ALBUTEROL/IPRATROPIUM 2.5MG/0.5MG, 3 ML NPPB SCH ×4 (06:49→19:05)
[2021-03-10] MEDS: MONTELUKAST 10 MG TABLET PO SCH (07:07)
[2021-03-10] MEDS: LACTOBACILLUS CHEW TABLET PO SCH ×3 (07:07→20:01)
[2021-03-10] MEDS: OXYcodone 5 MG/5 ML ORAL.SOL UDC PO PRN ×3 (08:19→19:34)
[2021-03-10] MEDS: LORazepam 2 MG/ML, 1ML IVPush PRN (08:19)
[2021-03-10] MEDS: SODIUM CHLORIDE FLUSH 10ML SYR IVF SCH ×2 (08:29→20:36)
[2021-03-10] MEDS: TIOTROPIUM BROMIDE 18 MCG/INH INH SCH (08:29)
[2021-03-10] MEDS: FLUTICASONE/VILANTEROL 200-25MCG/INH INH SCH (08:29)
[2021-03-10 10:04] LABS: INTERNATIONAL NORMALIZED RATIO 0.96 (0.93-1.1); PROTHROMBIN TIME 10.3 Seconds (9.6-11.5)
[2021-03-10] MEDS ORDERED: FENTANYL PF 100 MCG/2ML ONE ×3 (11:52→13:36)
[2021-03-10] MEDS ORDERED: FLUMAZENIL 0.1 MG/1 ML, 5ML ONE ×2 (11:53→13:36)
[2021-03-10] MEDS ORDERED: MIDAZOLAM 1 MG/ML, 5ML ONE ×2 (11:53→13:36)
[2021-03-10] MEDS ORDERED: NALOXONE 1 MG/ML, 2ML ONE ×2 (11:53→13:36)
[2021-03-10] MEDS ORDERED: OMNIPAQUE 350 MG/ML, 150 ML BOTTLE ONE (12:49)
[2021-03-10] MEDS ORDERED: SODIUM CHLORIDE 0.9%, 500ML IVBOLUS ONE (13:30)
[2021-03-10] MEDS: D5%-0.9% NACL 1,000 ML IV SCH (14:23)
[2021-03-10] MEDS: FENTANYL 25 MCG PATCH TD SCH (14:26)
[2021-03-10] MEDS: NICOTINE 21 MG/24 HR PATCH.TD24 TD SCH (15:29)
[2021-03-11] MEDS: morphine SULFATE 10 MG/ML, 1ML IV PRN ×5 (00:25→20:12)
[2021-03-11] MEDS: LORazepam 2 MG/ML, 1ML IVPush PRN (01:09)
[2021-03-11 05:34] LABS: BASOPHILS % (AUTO) 0 % (0-1); EOSINOPHILS % (AUTO) 1 % (1-7); LYMPHOCYTES % (AUTO) 4 % (22-44); MEAN CORPUSCULAR HEMOGLOBIN 30.9 pg (27.0-34.8); MEAN CORPUSCULAR HGB CONC 33.3 g/dL (32.4-35.8); MEAN PLATELET VOLUME 7.5 fL (7.4-10.4); MONOCYTES % (AUTO) 9 % (2-9); NEUTROPHILS % (AUTO) 85 % (42-75); PLATELET COUNT 206 x10^3/uL (130-400); RED BLOOD COUNT 2.69 x10^6/uL (3.82-5.3); RED CELL DISTRIBUTION WIDTH 15.4 % (9.6-15.2)
[2021-03-11 05:36] LABS: ALBUMIN 1.7 g/dL (3.4-5.0); ANION GAP 1 mmol/L (5-15); CALCIUM 7.9 mg/dL (8.5-10.1); CHLORIDE 102 mmol/L (98-107)
[2021-03-11 05:42] LABS: ALANINE AMINOTRANSFERASE 16 U/L (12-78); ALKALINE PHOSPHATASE 58 U/L (45-117); BILIRUBIN,TOTAL 0.7 mg/dL (0.2-1.0); CREATININE 0.21 mg/dL (0.55-1.02); TOTAL PROTEIN 5.6 g/dL (6.4-8.2)
[2021-03-11] MEDS: MEROPENEM 1 GM in SODIUM CHLORIDE 0.9% 100 ML IV SCH ×3 (05:43→20:11)
[2021-03-11] MEDS: INSULIN LISPRO 100 UNITS/ML, PEN SQ-INSULIN SCH (06:58)
[2021-03-11] MEDS: ALBUTEROL/IPRATROPIUM 2.5MG/0.5MG, 3 ML NPPB SCH ×4 (07:30→19:36)
[2021-03-11] MEDS: TIOTROPIUM BROMIDE 18 MCG/INH INH SCH (07:40)
[2021-03-11] MEDS: FLUTICASONE/VILANTEROL 200-25MCG/INH INH SCH (07:40)
[2021-03-11] MEDS ORDERED: DOCUSATE 50 MG/5 ML, 10ML UDC GT PRN (08:00)
[2021-03-11] MEDS ORDERED: FLUTICASONE/VILANTEROL 200-25MCG/INH INH PRN (08:00)
[2021-03-11] MEDS: MONTELUKAST 10 MG TABLET PO SCH (08:31)
[2021-03-11] MEDS: LACTOBACILLUS CHEW TABLET PO SCH (08:31)
[2021-03-11] MEDS ORDERED: POTASSIUM PHOSPHATE 44 MEQ in SODIUM CHLORIDE 0.9% 500 ML IV ONE (09:00)
[2021-03-11] MEDS: ONDANSETRON 2MG/ML, 2ML IVPush PRN (09:37)
[2021-03-11] MEDS: SODIUM CHLORIDE FLUSH 10ML SYR IVF SCH ×2 (09:42→21:13)
[2021-03-11] MEDS: D5%-0.9% NACL 1,000 ML IV SCH (09:46)
[2021-03-11] MEDS: BUDESONIDE 0.5 MG/2 ML INHA INH SCH ×2 (11:45→19:36)
[2021-03-11] MEDS ORDERED: MAGNESIUM SULFATE PMX 2GM/50ML 50 ML IV ONE (12:30)
[2021-03-11] MEDS: OXYcodone 5 MG/5 ML ORAL.SOL UDC PO PRN ×2 (12:41→18:07)
[2021-03-11] MEDS: POTASSIUM ACID PHOSPHATE 500 MG TABLET.SOL PEG SCH ×2 (12:47→18:06)
[2021-03-11] MEDS ORDERED: HYDROcodone/APAP 10/325 MG TABLET PEG PRN (14:00)
[2021-03-11] MEDS: LACTOBACILLUS CHEW TABLET PEG SCH ×2 (15:38→20:11)
[2021-03-11] MEDS: NICOTINE 21 MG/24 HR PATCH.TD24 TD SCH (15:39)
[2021-03-11] MEDS: LORazepam 0.5MG TABLET PEG PRN (21:13)
[2021-03-12] MEDS: POTASSIUM ACID PHOSPHATE 500 MG TABLET.SOL PEG SCH ×2 (00:09→06:06)
[2021-03-12] MEDS: morphine SULFATE 10 MG/ML, 1ML IV PRN ×2 (00:10→20:50)
[2021-03-12] MEDS: OXYcodone 5 MG/5 ML ORAL.SOL UDC PO PRN ×5 (02:58→23:46)
[2021-03-12] MEDS: ACETAMINOPHEN 325 MG TABLET PEG PRN ×3 (02:59→15:08)
[2021-03-12 04:29] LABS: BASOPHILS % (AUTO) 0 % (0-1); EOSINOPHILS % (AUTO) 3 % (1-7); LYMPHOCYTES % (AUTO) 3 % (22-44); MEAN CORPUSCULAR HEMOGLOBIN 31.2 pg (27.0-34.8); MEAN PLATELET VOLUME 6.9 fL (7.4-10.4); MONOCYTES % (AUTO) 12 % (2-9); NEUTROPHILS % (AUTO) 82 % (42-75); PLATELET COUNT 229 x10^3/uL (130-400); RED BLOOD COUNT 2.75 x10^6/uL (3.82-5.3); RED CELL DISTRIBUTION WIDTH 15.4 % (9.6-15.2)
[2021-03-12 04:37] LABS: ALBUMIN 1.6 g/dL (3.4-5.0); ANION GAP 2 mmol/L (5-15); CALCIUM 7.8 mg/dL (8.5-10.1); CHLORIDE 98 mmol/L (98-107)
[2021-03-12 04:41] LABS: ALANINE AMINOTRANSFERASE 15 U/L (12-78); ALKALINE PHOSPHATASE 59 U/L (45-117); BILIRUBIN,TOTAL 0.8 mg/dL (0.2-1.0); CREATININE 0.15 mg/dL (0.55-1.02); TOTAL PROTEIN 5.3 g/dL (6.4-8.2)
[2021-03-12] MEDS: D5%-0.9% NACL 1,000 ML IV SCH (04:44)
[2021-03-12] MEDS: MEROPENEM 1 GM in SODIUM CHLORIDE 0.9% 100 ML IV SCH ×3 (04:44→20:47)
[2021-03-12] MEDS: ALBUTEROL/IPRATROPIUM 2.5MG/0.5MG, 3 ML NPPB SCH ×4 (06:54→19:57)
[2021-03-12] MEDS: BUDESONIDE 0.5 MG/2 ML INHA INH SCH ×2 (06:54→19:57)
[2021-03-12] MEDS ORDERED: POTASSIUM PHOSPHATE 44 MEQ in SODIUM CHLORIDE 0.9% 500 ML IV ONE (08:00)
[2021-03-12] MEDS: SODIUM CHLORIDE FLUSH 10ML SYR IVF SCH ×2 (09:00→20:47)
[2021-03-12] MEDS: LACTOBACILLUS CHEW TABLET PEG SCH ×3 (09:01→20:48)
[2021-03-12] MEDS ORDERED: TPN PER PHARMACY MC PRN (10:30)
[2021-03-12] MEDS ORDERED: D5%-0.9% NACL 1,000 ML IV SCH ×2 (10:46→11:30)
[2021-03-12] MEDS: NICOTINE 21 MG/24 HR PATCH.TD24 TD SCH (15:08)
[2021-03-12] MEDS: FILTER, DISP 1.2 MICRON FOR TPN/PVN IV PRN (16:44)
[2021-03-12] MEDS: INSULIN REGULAR MEDIUM DOSE Q6H X 48HRS SQ-INSULIN SCH (16:58)
[2021-03-12] MEDS ORDERED: AMINO ACID 10% IV SCH (17:00)
[2021-03-12] MEDS ORDERED: SODIUM CHLORIDE 0.9% 1,000 ML IV SCH (17:00)
[2021-03-12] MEDS ORDERED: [UNRECOGNIZED DRUG - OTHER] IV SCH (17:00)
[2021-03-12] MEDS ORDERED: SMOF TPN IV SCH (17:00)
[2021-03-12] MEDS ORDERED: DEXTROSE 70% IV SCH (17:00)
[2021-03-12] MEDS ORDERED: FAT EMUL IV SCH (17:00)
[2021-03-12] MEDS: INSULIN REGULAR MEDIUM DOSE QDAY SQ-INSULIN SCH (20:49)
[2021-03-12] MEDS ORDERED: INSULIN REGULAR LOW DOSE Q6H X 48HRS SQ-INSULIN SCH (21:00)
[2021-03-12] MEDS ORDERED: INSULIN REGULAR LOW DOSE QDAY SQ-INSULIN SCH (21:00)
[2021-03-12] MEDS: LORazepam 2 MG/ML, 1ML IVPush PRN (21:54)
[2021-03-12] MEDS: ONDANSETRON 2MG/ML, 2ML IVPush PRN (23:19)
[2021-03-13] MEDS: morphine SULFATE 10 MG/ML, 1ML IV PRN ×2 (01:47→11:26)
[2021-03-13] MEDS: INSULIN REGULAR MEDIUM DOSE Q6H X 48HRS SQ-INSULIN SCH ×4 (02:31→21:22)
[2021-03-13] MEDS: OXYcodone 5 MG/5 ML ORAL.SOL UDC PO PRN ×4 (04:19→20:01)
[2021-03-13 05:47] LABS: BASOPHILS % (AUTO) 0 % (0-1); EOSINOPHILS % (AUTO) 1 % (1-7); LYMPHOCYTES % (AUTO) 3 % (22-44); MEAN CORPUSCULAR HEMOGLOBIN 30.3 pg (27.0-34.8); MEAN PLATELET VOLUME 7.2 fL (7.4-10.4); MONOCYTES % (AUTO) 10 % (2-9); NEUTROPHILS % (AUTO) 85 % (42-75); PLATELET COUNT 296 x10^3/uL (130-400); RED BLOOD COUNT 3.02 x10^6/uL (3.82-5.3); RED CELL DISTRIBUTION WIDTH 15.2 % (9.6-15.2)
[2021-03-13 05:51] LABS: CALCIUM 8.3 mg/dL (8.5-10.1)
[2021-03-13 05:59] LABS: CREATININE 0.22 mg/dL (0.55-1.02); PREALBUMIN 7.3 mg/dL (20.0-40.0)
[2021-03-13 06:08] LABS: CHLORIDE 98 mmol/L (98-107)
[2021-03-13 06:10] LABS: ANION GAP < 1 mmol/L (5-15)
[2021-03-13] MEDS: MEROPENEM 1 GM in SODIUM CHLORIDE 0.9% 100 ML IV SCH ×3 (06:36→21:10)
[2021-03-13] MEDS: ALBUTEROL/IPRATROPIUM 2.5MG/0.5MG, 3 ML NPPB SCH ×5 (07:00→20:56)
[2021-03-13] MEDS: BUDESONIDE 0.5 MG/2 ML INHA INH SCH ×3 (07:20→20:56)
[2021-03-13] MEDS ORDERED: SODIUM PHOSPHATE 20 MMOL in SODIUM CHLORIDE 0.9% 500 ML IV ONE (08:00)
[2021-03-13] MEDS: SODIUM CHLORIDE FLUSH 10ML SYR IVF SCH ×2 (08:28→21:00)
[2021-03-13] MEDS: LACTOBACILLUS CHEW TABLET PEG SCH ×3 (08:28→20:00)
[2021-03-13] MEDS ORDERED: AMINO ACID 10% IV SCH ×3 (09:00→17:00)
[2021-03-13] MEDS ORDERED: DEXTROSE 70% IV SCH ×3 (09:00→17:00)
[2021-03-13] MEDS ORDERED: SMOF TPN IV SCH ×3 (09:00→17:00)
[2021-03-13] MEDS ORDERED: FAT EMUL IV SCH ×3 (09:00→17:00)
[2021-03-13] MEDS ORDERED: [UNRECOGNIZED DRUG - OTHER] IV SCH ×2 (09:00→17:00)
[2021-03-13] MEDS: LORazepam 2 MG/ML, 1ML IVPush PRN (16:24)
[2021-03-13] MEDS: NICOTINE 21 MG/24 HR PATCH.TD24 TD SCH (16:28)
[2021-03-13] MEDS ORDERED: [UNRECOGNIZED DRUG - OTHER] IV SCH (17:00)
[2021-03-13] MEDS: FILTER, DISP 1.2 MICRON FOR TPN/PVN IV PRN (17:31)
[2021-03-13] MEDS: INSULIN REGULAR MEDIUM DOSE QDAY SQ-INSULIN SCH (21:00)
[2021-03-14] MEDS: OXYcodone 5 MG/5 ML ORAL.SOL UDC PO PRN ×5 (01:27→20:04)
[2021-03-14] MEDS: INSULIN REGULAR MEDIUM DOSE Q6H X 48HRS SQ-INSULIN SCH ×3 (03:25→15:46)
[2021-03-14 03:41] LABS: BASOPHILS % (AUTO) 0 % (0-1); EOSINOPHILS % (AUTO) 2 % (1-7); LYMPHOCYTES % (AUTO) 2 % (22-44); MEAN CORPUSCULAR HEMOGLOBIN 30.2 pg (27.0-34.8); MEAN CORPUSCULAR HGB CONC 32.6 g/dL (32.4-35.8); MEAN PLATELET VOLUME 7.2 fL (7.4-10.4); MONOCYTES % (AUTO) 11 % (2-9); NEUTROPHILS % (AUTO) 85 % (42-75); PLATELET COUNT 278 x10^3/uL (130-400); RED BLOOD COUNT 2.91 x10^6/uL (3.82-5.3); RED CELL DISTRIBUTION WIDTH 15.4 % (9.6-15.2)
[2021-03-14 03:53] LABS: CHLORIDE 97 mmol/L (98-107); CREATININE 0.19 mg/dL (0.55-1.02)
[2021-03-14 04:08] LABS: ANION GAP < 1 mmol/L (5-15)
[2021-03-14] MEDS: MEROPENEM 1 GM in SODIUM CHLORIDE 0.9% 100 ML IV SCH ×3 (05:38→20:23)
[2021-03-14] MEDS: ALBUTEROL/IPRATROPIUM 2.5MG/0.5MG, 3 ML NPPB SCH ×4 (07:15→19:42)
[2021-03-14] MEDS: BUDESONIDE 0.5 MG/2 ML INHA INH SCH ×2 (07:16→19:42)
[2021-03-14] MEDS: morphine SULFATE 10 MG/ML, 1ML IV PRN (08:32)
[2021-03-14] MEDS: LACTOBACILLUS CHEW TABLET PEG SCH ×3 (10:58→20:05)
[2021-03-14] MEDS: SODIUM CHLORIDE FLUSH 10ML SYR IVF SCH ×2 (10:59→20:06)
[2021-03-14] MEDS: NICOTINE 21 MG/24 HR PATCH.TD24 TD SCH (15:43)
[2021-03-14] MEDS ORDERED: DEXTROSE 70% IV SCH (17:00)
[2021-03-14] MEDS ORDERED: AMINO ACID 10% IV SCH (17:00)
[2021-03-14] MEDS ORDERED: FAT EMUL IV SCH (17:00)
[2021-03-14] MEDS ORDERED: [UNRECOGNIZED DRUG - OTHER] IV SCH (17:00)
[2021-03-14] MEDS ORDERED: SMOF TPN IV SCH (17:00)
[2021-03-14 19:04] VITALS: BP 92/63
[2021-03-14] MEDS: INSULIN REGULAR MEDIUM DOSE QDAY SQ-INSULIN SCH (20:36)
[2021-03-15 00:37] VITALS: BP 96/62
[2021-03-15] MEDS: OXYcodone 5 MG/5 ML ORAL.SOL UDC PO PRN ×5 (00:52→21:53)
[2021-03-15] MEDS: morphine SULFATE 10 MG/ML, 1ML IV PRN ×3 (03:52→19:47)
[2021-03-15] MEDS: MEROPENEM 1 GM in SODIUM CHLORIDE 0.9% 100 ML IV SCH ×3 (04:47→21:53)
[2021-03-15] MEDS: LORazepam 2 MG/ML, 1ML IVPush PRN (04:47)
[2021-03-15 05:30] LABS: BASOPHILS % (AUTO) 1 % (0-1); EOSINOPHILS % (AUTO) 3 % (1-7); LYMPHOCYTES % (AUTO) 4 % (22-44); MEAN CORPUSCULAR HEMOGLOBIN 30.2 pg (27.0-34.8); MEAN CORPUSCULAR HGB CONC 32.8 g/dL (32.4-35.8); MEAN PLATELET VOLUME 7.1 fL (7.4-10.4); MONOCYTES % (AUTO) 13 % (2-9); NEUTROPHILS % (AUTO) 80 % (42-75); PLATELET COUNT 262 x10^3/uL (130-400); RED BLOOD COUNT 2.77 x10^6/uL (3.82-5.3); RED CELL DISTRIBUTION WIDTH 15.3 % (9.6-15.2)
[2021-03-15 05:33] LABS: CHLORIDE 99 mmol/L (98-107)
[2021-03-15 05:34] LABS: ANION GAP 1 mmol/L (5-15); CALCIUM 7.9 mg/dL (8.5-10.1)
[2021-03-15 05:35] LABS: CREATININE 0.22 mg/dL (0.55-1.02)
[2021-03-15] MEDS: BUDESONIDE 0.5 MG/2 ML INHA INH SCH ×2 (06:40→20:22)
[2021-03-15] MEDS: ALBUTEROL/IPRATROPIUM 2.5MG/0.5MG, 3 ML NPPB SCH ×4 (06:40→20:22)
[2021-03-15 07:13] VITALS: BP 92/55
[2021-03-15] MEDS: POTASSIUM ACID PHOSPHATE 500 MG TABLET.SOL PO SCH ×3 (07:17→21:54)
[2021-03-15] MEDS: LACTOBACILLUS CHEW TABLET PEG SCH ×3 (07:19→21:53)
[2021-03-15] MEDS: SODIUM CHLORIDE FLUSH 10ML SYR IVF SCH ×2 (07:19→21:53)
[2021-03-15] MEDS ORDERED: EPHEDRINE 50 MG/ML, 1ML IVPush PRN (08:00)
[2021-03-15] MEDS ORDERED: ONDANSETRON 2MG/ML, 2ML IVPush PRN (08:00)
[2021-03-15] MEDS ORDERED: ACETAMINOPHEN 325 MG TABLET PO PRN (08:00)
[2021-03-15] MEDS ORDERED: OXYcodone 5 MG/5 ML ORAL.SOL UDC PO PRN (08:00)
[2021-03-15] MEDS ORDERED: LABETALOL 5MG/ML, 20ML IV PRN (08:00)
[2021-03-15] MEDS ORDERED: FENTANYL PF 100 MCG/2ML IV PRN (08:00)
[2021-03-15] MEDS ORDERED: HYDROmorphone 1 MG/ML, 1ML INJ IVPush PRN (08:00)
[2021-03-15] MEDS ORDERED: hydrALAzine 20 MG/ML, 1ML IV PRN (08:00)
[2021-03-15] MEDS ORDERED: MEPERIDINE/PF 25MG/0.5ML IVPush PRN (08:00)
[2021-03-15] MEDS ORDERED: PROMETHAZINE 25 MG/ML, 1ML IVPush PRN (08:00)
[2021-03-15] MEDS ORDERED: LIDOCAINE-MPF 2% ,5ML ONE (08:05)
[2021-03-15] MEDS ORDERED: CHLORHEXIDINE 15 ML UDC ONE (08:37)
[2021-03-15] MEDS ORDERED: FENTANYL PF 100 MCG/2ML ONE (08:39)
[2021-03-15] MEDS ORDERED: PROPOFOL 10 MG/ML, 20ML ONE (09:34)
[2021-03-15] MEDS ORDERED: ONDANSETRON 2MG/ML, 2ML ONE (09:34)
[2021-03-15] MEDS ORDERED: SUCCINYLCHOLINE 20 MG/ML, 10ML ONE (09:34)
[2021-03-15] MEDS ORDERED: DEXAMETHASONE 4 MG/ML, 5ML ONE ×3 (09:34)
[2021-03-15] MEDS: ONDANSETRON 2MG/ML, 2ML IVPush PRN (11:09)
[2021-03-15 14:37] VITALS: BP 110/69
[2021-03-15] MEDS: NICOTINE 21 MG/24 HR PATCH.TD24 TD SCH (16:47)
[2021-03-15] MEDS: FILTER, DISP 1.2 MICRON FOR TPN/PVN IV PRN (16:48)
[2021-03-15] MEDS ORDERED: FAT EMUL IV SCH (17:00)
[2021-03-15] MEDS ORDERED: DEXTROSE 70% IV SCH (17:00)
[2021-03-15] MEDS ORDERED: SMOF TPN IV SCH (17:00)
[2021-03-15] MEDS ORDERED: AMINO ACID 10% IV SCH (17:00)
[2021-03-15] MEDS ORDERED: [UNRECOGNIZED DRUG - OTHER] IV SCH (17:00)
[2021-03-15 19:23] VITALS: BP 101/55
[2021-03-15] MEDS: INSULIN REGULAR MEDIUM DOSE QDAY SQ-INSULIN SCH (21:52)
[2021-03-16] MEDS: morphine SULFATE 10 MG/ML, 1ML IV PRN ×3 (00:26→18:27)
[2021-03-16 01:11] VITALS: BP 115/73
[2021-03-16] MEDS: OXYcodone 5 MG/5 ML ORAL.SOL UDC PO PRN ×5 (02:41→21:20)
[2021-03-16] MEDS: POTASSIUM ACID PHOSPHATE 500 MG TABLET.SOL PO SCH (02:41)
[2021-03-16] MEDS: MEROPENEM 1 GM in SODIUM CHLORIDE 0.9% 100 ML IV SCH ×2 (04:31→13:25)
[2021-03-16] MEDS: LORazepam 2 MG/ML, 1ML IVPush PRN ×2 (04:31→22:26)
[2021-03-16 04:45] LABS: CREATININE 0.21 mg/dL (0.55-1.02)
[2021-03-16 04:51] LABS: ANION GAP 2 mmol/L (5-15); CHLORIDE 100 mmol/L (98-107)
[2021-03-16] MEDS: ALBUTEROL/IPRATROPIUM 2.5MG/0.5MG, 3 ML NPPB SCH ×4 (07:15→18:43)
[2021-03-16] MEDS: BUDESONIDE 0.5 MG/2 ML INHA INH SCH ×2 (07:15→18:43)
[2021-03-16] MEDS: LACTOBACILLUS CHEW TABLET PEG SCH ×3 (07:43→21:20)
[2021-03-16 07:48] VITALS: BP 107/68
[2021-03-16] MEDS: SODIUM CHLORIDE FLUSH 10ML SYR IVF SCH ×2 (09:00→21:20)
[2021-03-16] MEDS: ONDANSETRON 2MG/ML, 2ML IVPush PRN (10:36)
[2021-03-16] MEDS: NICOTINE 21 MG/24 HR PATCH.TD24 TD SCH (15:30)
[2021-03-16] MEDS: FILTER, DISP 1.2 MICRON FOR TPN/PVN IV PRN (16:51)
[2021-03-16] MEDS ORDERED: DEXTROSE 70% IV SCH (17:00)
[2021-03-16] MEDS ORDERED: AMINO ACID 10% IV SCH (17:00)
[2021-03-16] MEDS ORDERED: SMOF TPN IV SCH (17:00)
[2021-03-16] MEDS ORDERED: FAT EMUL IV SCH (17:00)
[2021-03-16] MEDS ORDERED: [UNRECOGNIZED DRUG - OTHER] IV SCH (17:00)
[2021-03-16 18:55] VITALS: BP 93/59
[2021-03-16] MEDS: INSULIN REGULAR MEDIUM DOSE QDAY SQ-INSULIN SCH (22:47)
[2021-03-17] MEDS: MEROPENEM 1 GM in SODIUM CHLORIDE 0.9% 100 ML IV SCH ×2 (01:28→13:06)
[2021-03-17 04:48] VITALS: BP 104/67
[2021-03-17] MEDS: morphine SULFATE 10 MG/ML, 1ML IV PRN ×5 (04:55→21:07)
[2021-03-17] MEDS: OXYcodone 5 MG/5 ML ORAL.SOL UDC PO PRN ×5 (05:37→23:48)
[2021-03-17 06:08] LABS: CALCIUM 8.3 mg/dL (8.5-10.1); CREATININE 0.22 mg/dL (0.55-1.02)
[2021-03-17 06:22] LABS: ANION GAP 1 mmol/L (5-15); CHLORIDE 99 mmol/L (98-107)
[2021-03-17] MEDS: BUDESONIDE 0.5 MG/2 ML INHA INH SCH ×2 (07:00→20:17)
[2021-03-17] MEDS: ALBUTEROL/IPRATROPIUM 2.5MG/0.5MG, 3 ML NPPB SCH ×4 (07:00→20:00)
[2021-03-17 07:47] VITALS: BP 100/63
[2021-03-17] MEDS: LACTOBACILLUS CHEW TABLET PEG SCH ×3 (08:03→21:09)
[2021-03-17] MEDS: SODIUM CHLORIDE FLUSH 10ML SYR IVF SCH ×2 (08:03→21:09)
[2021-03-17] MEDS ORDERED: LIDOCAINE 1%, 20ML ONE (11:00)
[2021-03-17] MEDS ORDERED: MIDAZOLAM 1 MG/ML, 5ML ONE ×2 (11:20→11:21)
[2021-03-17] MEDS ORDERED: FLUMAZENIL 0.1 MG/1 ML, 5ML ONE (11:20)
[2021-03-17] MEDS ORDERED: FENTANYL PF 100 MCG/2ML ONE (11:20)
[2021-03-17] MEDS ORDERED: NALOXONE 1 MG/ML, 2ML ONE (11:21)
[2021-03-17 15:02] VITALS: BP 102/66
[2021-03-17] MEDS: NICOTINE 21 MG/24 HR PATCH.TD24 TD SCH (16:02)
[2021-03-17] MEDS ORDERED: FAT EMUL IV SCH (17:00)
[2021-03-17] MEDS ORDERED: SMOF TPN IV SCH (17:00)
[2021-03-17] MEDS ORDERED: [UNRECOGNIZED DRUG - OTHER] IV SCH (17:00)
[2021-03-17] MEDS ORDERED: AMINO ACID 10% IV SCH (17:00)
[2021-03-17] MEDS ORDERED: DEXTROSE 70% IV SCH (17:00)
[2021-03-17] MEDS: FILTER, DISP 1.2 MICRON FOR TPN/PVN IV PRN (17:23)
[2021-03-17] MEDS: LORazepam 0.5MG TABLET PEG PRN (17:23)
[2021-03-17] MEDS: ACETAMINOPHEN 325 MG TABLET PEG PRN (17:23)
[2021-03-17 19:07] VITALS: BP 99/61
[2021-03-17] MEDS: INSULIN REGULAR MEDIUM DOSE QDAY SQ-INSULIN SCH (21:14)
[2021-03-18] MEDS: morphine SULFATE 10 MG/ML, 1ML IV PRN ×7 (00:20→20:08)
[2021-03-18 01:10] VITALS: BP 104/67
[2021-03-18] MEDS: MEROPENEM 1 GM in SODIUM CHLORIDE 0.9% 100 ML IV SCH ×2 (01:21→13:13)
[2021-03-18] MEDS: LORazepam 0.5MG TABLET PEG PRN ×2 (03:00→22:08)
[2021-03-18 04:54] LABS: BASOPHILS % (AUTO) 0 % (0-1); EOSINOPHILS % (AUTO) 2 % (1-7); LYMPHOCYTES % (AUTO) 3 % (22-44); MEAN CORPUSCULAR HEMOGLOBIN 30.7 pg (27.0-34.8); MEAN CORPUSCULAR HGB CONC 33.2 g/dL (32.4-35.8); MEAN PLATELET VOLUME 7.4 fL (7.4-10.4); MONOCYTES % (AUTO) 10 % (2-9); NEUTROPHILS % (AUTO) 85 % (42-75); PLATELET COUNT 285 x10^3/uL (130-400); RED BLOOD COUNT 2.65 x10^6/uL (3.82-5.3); RED CELL DISTRIBUTION WIDTH 15.5 % (9.6-15.2)
[2021-03-18 04:56] LABS: ANION GAP 1 mmol/L (5-15); CALCIUM 8.2 mg/dL (8.5-10.1); CHLORIDE 99 mmol/L (98-107); CREATININE 0.25 mg/dL (0.55-1.02)
[2021-03-18] MEDS: ALBUTEROL/IPRATROPIUM 2.5MG/0.5MG, 3 ML NPPB SCH ×4 (06:42→19:52)
[2021-03-18 07:00] VITALS: BP 94/60
[2021-03-18] MEDS: SODIUM CHLORIDE FLUSH 10ML SYR IVF SCH ×2 (09:00→20:08)
[2021-03-18] MEDS: LACTOBACILLUS CHEW TABLET PEG SCH ×3 (09:06→20:13)
[2021-03-18] MEDS: ONDANSETRON 2MG/ML, 2ML IVPush PRN ×2 (09:29→17:34)
[2021-03-18] MEDS: BUDESONIDE 0.5 MG/2 ML INHA INH SCH ×2 (10:32→19:52)
[2021-03-18 12:39] VITALS: BP 92/61
[2021-03-18] MEDS: NICOTINE 21 MG/24 HR PATCH.TD24 TD SCH (13:12)
[2021-03-18] MEDS: OXYcodone 5 MG/5 ML ORAL.SOL UDC PO PRN ×3 (13:13→23:08)
[2021-03-18] MEDS ORDERED: POTASSIUM CHLORIDE 10% 40 MEQ/30 ML UDC PO ONE (14:00)
[2021-03-18] MEDS ORDERED: MAGNESIUM SULFATE PMX 2GM/50ML 50 ML IV ONE (14:00)
[2021-03-18 18:55] VITALS: BP 98/62
[2021-03-19 02:17] VITALS: BP 94/61
[2021-03-19] MEDS: OXYcodone 5 MG/5 ML ORAL.SOL UDC PO PRN ×4 (04:39→23:08)
[2021-03-19 05:28] LABS: BASOPHILS % (AUTO) 0 % (0-1); EOSINOPHILS % (AUTO) 3 % (1-7); LYMPHOCYTES % (AUTO) 5 % (22-44); MEAN CORPUSCULAR HEMOGLOBIN 30.9 pg (27.0-34.8); MEAN CORPUSCULAR HGB CONC 33.5 g/dL (32.4-35.8); MEAN PLATELET VOLUME 7.4 fL (7.4-10.4); MONOCYTES % (AUTO) 8 % (2-9); NEUTROPHILS % (AUTO) 84 % (42-75); PLATELET COUNT 307 x10^3/uL (130-400); RED BLOOD COUNT 2.74 x10^6/uL (3.82-5.3); RED CELL DISTRIBUTION WIDTH 15.2 % (9.6-15.2)
[2021-03-19 05:31] LABS: CALCIUM 8.3 mg/dL (8.5-10.1)
[2021-03-19 05:32] LABS: CREATININE 0.28 mg/dL (0.55-1.02)
[2021-03-19 06:29] LABS: CHLORIDE 96 mmol/L (98-107)
[2021-03-19 06:30] LABS: ANION GAP 2 mmol/L (5-15)
[2021-03-19] MEDS: BUDESONIDE 0.5 MG/2 ML INHA INH SCH ×2 (07:15→19:15)
[2021-03-19] MEDS: ALBUTEROL/IPRATROPIUM 2.5MG/0.5MG, 3 ML NPPB SCH ×3 (07:15→19:15)
[2021-03-19 07:58] VITALS: BP 97/61
[2021-03-19] MEDS: LACTOBACILLUS CHEW TABLET PEG SCH ×3 (08:22→21:48)
[2021-03-19] MEDS: morphine SULFATE 10 MG/ML, 1ML IV PRN ×4 (08:25→22:15)
[2021-03-19] MEDS: SODIUM CHLORIDE FLUSH 10ML SYR IVF SCH ×2 (08:26→21:48)
[2021-03-19] MEDS ORDERED: ALBUTEROL SULFATE 2.5 MG/3 ML NPPB PRN (11:30)
[2021-03-19] MEDS ORDERED: HYDROcodone/APAP 10/325 MG TABLET PO PRN (11:30)
[2021-03-19] MEDS ORDERED: MAGNESIUM HYDROXIDE 8%, 30ML UDC PO PRN (12:00)
[2021-03-19 13:43] VITALS: BP 98/62
[2021-03-19] MEDS: NICOTINE 21 MG/24 HR PATCH.TD24 TD SCH (14:07)
[2021-03-19] MEDS: LORazepam 0.5MG TABLET PEG PRN (15:05)
[2021-03-19 19:36] VITALS: BP 93/60
[2021-03-19] MEDS: OMEPRAZOLE/SOD. BICARB. PACKET PEG SCH (21:49)
[2021-03-20 00:43] VITALS: BP 96/60
[2021-03-20] MEDS: morphine SULFATE 10 MG/ML, 1ML IV PRN ×2 (02:21→06:26)
[2021-03-20] MEDS: OXYcodone 5 MG/5 ML ORAL.SOL UDC PO PRN ×2 (04:12→08:14)
[2021-03-20 04:45] LABS: BASOPHILS % (AUTO) 0 % (0-1); EOSINOPHILS % (AUTO) 2 % (1-7); LYMPHOCYTES % (AUTO) 5 % (22-44); MEAN CORPUSCULAR HEMOGLOBIN 30.5 pg (27.0-34.8); MEAN CORPUSCULAR HGB CONC 33.3 g/dL (32.4-35.8); MEAN PLATELET VOLUME 7.2 fL (7.4-10.4); MONOCYTES % (AUTO) 8 % (2-9); NEUTROPHILS % (AUTO) 85 % (42-75); PLATELET COUNT 257 x10^3/uL (130-400); RED BLOOD COUNT 3.66 x10^6/uL (3.82-5.3); RED CELL DISTRIBUTION WIDTH 15.5 % (9.6-15.2)
[2021-03-20 04:58] LABS: ANION GAP 1 mmol/L (5-15); CALCIUM 8.5 mg/dL (8.5-10.1); CHLORIDE 94 mmol/L (98-107)
[2021-03-20 04:59] LABS: CREATININE 0.32 mg/dL (0.55-1.02)
[2021-03-20] MEDS ORDERED: LEVOTHYROXINE 25 MCG TABLET PO SCH (06:00)
[2021-03-20 06:33] VITALS: BP 95/60
[2021-03-20] MEDS: SODIUM CHLORIDE FLUSH 10ML SYR IVF SCH (08:13)
[2021-03-20] MEDS: LACTOBACILLUS CHEW TABLET PEG SCH ×2 (08:14→16:35)
[2021-03-20] MEDS: OMEPRAZOLE/SOD. BICARB. PACKET PEG SCH (08:16)
[2021-03-20] MEDS ORDERED: NICO-587 TD (08:58)
[2021-03-20] MEDS ORDERED: ACID1TAB7 PEG (08:58)
[2021-03-20] MEDS ORDERED: ACET325T26 PEG (08:58)
[2021-03-20] MEDS ORDERED: OXYC5SOL8 PO (08:58)
[2021-03-20] MEDS ORDERED: CHOLECALCIFEROL 1,000 UNIT TABLET PO SCH (09:00)
[2021-03-20] MEDS ORDERED: OXYcodone 5 MG/5 ML ORAL.SOL UDC PO PRN (09:00)
[2021-03-20] MEDS: ALBUTEROL/IPRATROPIUM 2.5MG/0.5MG, 3 ML NPPB SCH (09:40)
[2021-03-20] MEDS: BUDESONIDE 0.5 MG/2 ML INHA INH SCH (09:40)
[2021-03-20] MEDS: ACETAMINOPHEN 325 MG TABLET PEG PRN (11:22)
[2021-03-20 12:52] VITALS: BP 95/58
[2021-03-20] MEDS: NICOTINE 21 MG/24 HR PATCH.TD24 TD SCH (14:07)
== END 2021-03-20 17:11 | disposition home health service (06) | DRG 853 ==
LOC: ED 13:07 → EDIP 14:44 → 4NE 20:02 → 4NW 03-08 05:49 → CCU 03-08 10:55 → 4NW 03-14 11:48
PROVIDERS: ADMIT Hospitalist; ATTEND Internal Medicine
PROC: 0DB80ZZ Excision of Small Intestine, Open Approach (ICD-10-PCS; 2021-03-07)
PROC: 0YU70JZ Supplement Right Femoral Region with Synthetic Substitute, Open Approach (ICD-10-PCS; principal; 2021-03-07 15:30)
PROC: 0WCG0ZZ Extirpation of Matter from Peritoneal Cavity, Open Approach (ICD-10-PCS; 2021-03-09)
PROC: 0W9930Z Drainage of Right Pleural Cavity with Drainage Device, Percutaneous Approach (ICD-10-PCS; 2021-03-09)
PROC: 30233N1 Transfusion of Nonautologous Red Blood Cells into Peripheral Vein, Percutaneous Approach (ICD-10-PCS; 2021-03-09)
PROC: 0W9930Z Drainage of Right Pleural Cavity with Drainage Device, Percutaneous Approach (ICD-10-PCS; 2021-03-10)
PROC: 02HV33Z Insertion of Infusion Device into Superior Vena Cava, Percutaneous Approach (ICD-10-PCS; 2021-03-12)
PROC: B548ZZA Ultrasonography of Superior Vena Cava, Guidance (ICD-10-PCS; 2021-03-12)
PROC: 0D758DZ Dilation of Esophagus with Intraluminal Device, Via Natural or Artificial Opening Endoscopic (ICD-10-PCS; 2021-03-15)
PROC: 0JH63XZ Insertion of Tunneled Vascular Access Device into Chest Subcutaneous Tissue and Fascia, Percutaneous Approach (ICD-10-PCS; 2021-03-17)
DX: A41.02 Sepsis due to Methicillin resistant Staphylococcus aureus (principal); E43 Unspecified severe protein-calorie malnutrition; J69.0 Pneumonitis due to inhalation of food and vomit; J96.21 Acute and chronic respiratory failure with hypoxia; K41.30 Unilateral femoral hernia, with obstruction, without gangrene, not specified as recurrent; E87.1 Hypo-osmolality and hyponatremia; C34.90 Malignant neoplasm of unspecified part of unspecified bronchus or lung; C15.9 Malignant neoplasm of esophagus, unspecified; D62 Acute posthemorrhagic anemia; I48.20 Chronic atrial fibrillation, unspecified; J44.0 Chronic obstructive pulmonary disease with (acute) lower respiratory infection; J44.1 Chronic obstructive pulmonary disease with (acute) exacerbation; J93.9 Pneumothorax, unspecified; K56.7 Ileus, unspecified; B37.81 Candidal esophagitis; T85.528A Displacement of other gastrointestinal prosthetic devices, implants and grafts, initial encounter; Z20.822 Contact with and (suspected) exposure to COVID-19; K44.9 Diaphragmatic hernia without obstruction or gangrene; D63.8 Anemia in other chronic diseases classified elsewhere; E03.9 Hypothyroidism, unspecified; E11.9 Type 2 diabetes mellitus without complications; F17.210 Nicotine dependence, cigarettes, uncomplicated; I11.0 Hypertensive heart disease with heart failure; I50.9 Heart failure, unspecified; K22.2 Esophageal obstruction; S30.1XXA Contusion of abdominal wall, initial encounter; Z82.49 Family history of ischemic heart disease and other diseases of the circulatory system; Z82.5 Family history of asthma and other chronic lower respiratory diseases; Z79.899 Other long term (current) drug therapy; Z83.3 Family history of diabetes mellitus; Z68.22 Body mass index [BMI] 22.0-22.9, adult; Z85.01 Personal history of malignant neoplasm of esophagus; Z85.118 Personal history of other malignant neoplasm of bronchus and lung; Z87.01 Personal history of pneumonia (recurrent); Z88.1 Allergy status to other antibiotic agents; Z92.21 Personal history of antineoplastic chemotherapy; Z92.3 Personal history of irradiation; Z93.1 Gastrostomy status; Z99.81 Dependence on supplemental oxygen; Y83.8 Other surgical procedures as the cause of abnormal reaction of the patient, or of later complication, without mention of misadventure at the time of the procedure; Y92.89 Other specified places as the place of occurrence of the external cause; Z88.8 Allergy status to other drugs, medicaments and biological substances
CPT/HCPCS: 32555; 32557; 36415; 36573; 36600; 71045; 71250; 74018; 74177; 74220; 80048; 80053; 80202; 81001; 82803; 82962; 83036; 83605; 83615; 83690; 83735; 83986; 84100; 84134; 84157; 85014; 85018; 85025; 85610; 85730; 86850; 86900; 86923; 87040; 87070; 87081; 87086; 87205; 87635; 88112; 88305; 88307; 89051; 93005; 94640; 94660; 94668; 96374; 99156; 99157; G0378; J0171; J0610; J0690; J1100; J1170; J1644; J1815; J1885; J1940; J1956; J2175; J2185; J2250; J2405; J2704; J2710; J3010; J3370; J3475; J3480; J7042; J7626; Q9967; C1725; C1729; C1751; C1769; C1781; C1874; C9113; J0330; J2060; J2270; J2310; J2765; J3420; J7040; J7050; J7120; P9016